=== PATIENT | female | born 1960 | race Caucasian/White ===

== ENCOUNTER 2021-01-21 06:27 | Emergency (ER) | payer OTHER ==
[~2021-01-21 06:27] MED LIST: COZAAR 25MG TAB25 MG PO; MOBIC7.5 MG PO; OTEZLA30 MG PO; PERCOCET 5-3251 EACH PO
[2021-01-21] MEDS ORDERED: NORCO 5-325 TA1 EACH PO (07:03)
== END 2021-01-21 07:30 | disposition home or self-care (01) ==
LOC: FER 06:27
DX: M72.2 Plantar fascial fibromatosis (principal); I10 Essential (primary) hypertension; F17.210 Nicotine dependence, cigarettes, uncomplicated; Z79.899 Other long term (current) drug therapy
CPT/HCPCS: 73630; J1885

== ENCOUNTER 2021-11-05 04:25 | Emergency (ER) | payer OTHER ==
[~2021-11-05 04:25] MED LIST changes: +NORCO 5-325 TA1 EACH PO
[2021-11-05 06:42] LABS: BASOPHIL 0.2 % (0-2); EOSINOPHIL 0.9 % (0-5); HCT 42.1 % (37.0-47.0); LYMPHOCYTE 4.4 % (15-48); MCH 31.3 pg (25.0-31.0); MCHC 33.3 g/dL (32.0-36.0); MONOCYTE 10.2 % (0-12); MPV 12.1 fL (6.0-9.5); NEUTROPHIL 83.9 % (41-80); NRBC 0; PLT 177 K/uL (150-400); RBC 4.48 M/uL (4.20-5.40); WBC 5.7 K/uL (4.0-10.5)
[2021-11-05 06:45] LABS: LACTIC ACID 1.5 mmol/L (0.4-1.9)
[2021-11-05 06:48] LABS: ALBUMIN 3.8 g/dL (3.4-5.0); BILIRUBIN - TOTAL 0.5 mg/dL (0.2-1.0); BUN/CREAT RATIO (CALC) 15.5 RATIO; CREATININE 1.42 mg/dL (0.51-0.95); GLOBULIN (CALCULATION) 3.7 g/dL; TOTAL PROTEIN 7.5 g/dL (6.4-8.2)
[2021-11-05 10:56] LABS: BILIRUBIN NEGATIVE (NEGATIVE); BLOOD NEGATIVE Ery/uL (NEGATIVE); CLARITY CLEAR (CLEAR); COLOR YELLOW (YELLOW); GLUCOSE (U) NORMAL (NORMAL); LEUKOCYTES TRACE Leu/uL (NEGATIVE); NITRITE POSITIVE (NEGATIVE); PROTEIN NEGATIVE (NEGATIVE); UROBILINOGEN 0.2 mg/dL (0.2-1.0)
[2021-11-05 11:23] LABS: BACTERIA 3+
[2021-11-05 11:53] LABS: BUN/CREAT RATIO (CALC) 17.1 RATIO; CREATININE 1.29 mg/dL (0.51-0.95)
[2021-11-05] MEDS ORDERED: CIPRO500 MG PO (12:43)
== END 2021-11-05 13:19 | disposition home or self-care (01) ==
LOC: FER 04:25
PROVIDERS: Emergency Medicine; Emergency Medicine Emergency Medical Services
DX: N13.6 Pyonephrosis (principal); N17.9 Acute kidney failure, unspecified; I10 Essential (primary) hypertension; J44.9 Chronic obstructive pulmonary disease, unspecified; F17.210 Nicotine dependence, cigarettes, uncomplicated; Z79.899 Other long term (current) drug therapy
CPT/HCPCS: 36415; 80048; 80053; 81001; 83605; 83690; 84145; 85025; 87076; 87088; 87186; J2270; J2405; J7030

== ENCOUNTER → 2022-03-01 | Day surgery (SDC) | payer OTHER ==
[~2022-03-01] VITALS: Ht 165.1 cm; Wt 72.6 kg
[~2022-03-01] MED LIST changes: +CALCIUM PO; +CIPRO500 MG PO; +METOPROLOL SUCC25 MG PO; +MULTI-VITAMIN1 EACH PO; +PROAIR HFA8.5 GM INH; +STIOLTO RESPIMAT 2.5 INH
== END | disposition home or self-care (01) ==
LOC: FAS 08:41
DX: K52.832 Lymphocytic colitis (principal); K52.9 Noninfective gastroenteritis and colitis, unspecified; K63.5 Polyp of colon; K57.30 Diverticulosis of large intestine without perforation or abscess without bleeding; I10 Essential (primary) hypertension; J44.9 Chronic obstructive pulmonary disease, unspecified; F17.210 Nicotine dependence, cigarettes, uncomplicated; Z79.899 Other long term (current) drug therapy; Z86.16 Personal history of COVID-19
CPT/HCPCS: J1610; J2704; J7120

== ENCOUNTER → 2022-04-30 | Day surgery (SDC) | payer OTHER ==
[~2022-04-30] VITALS: Ht 162.6 cm; Wt 72.6 kg
[~2022-04-30] MED LIST changes: +BUDESONIDE PO; +CENTRUM ULTRA1 EACH PO; +COZAAR100 MG PO; +OS-CAL500 MG PO
[2022-04-30 08:18] LABS: HCT 37.5 % (37.0-47.0); HGB 12.5 g/dl (12.5-16.0); MCH 30.6 pg (25.0-31.0); MCHC 33.3 g/dL (32.0-36.0); MCV 91.7 fL (78.0-100.0); MPV 11.2 fL (6.0-9.5); RBC 4.09 M/uL (4.20-5.40); WBC 7.3 K/uL (4.0-10.5)
[2022-04-30 09:14] LABS: CREATININE 0.92 mg/dL (0.51-0.95); POTASSIUM 3.8 mmol/L (3.5-5.1)
== END | disposition home or self-care (01) ==
LOC: FAS 07:47
PROVIDERS: Obstetrics & Gynecology
DX: N87.1 Moderate cervical dysplasia (principal); I12.9 Hypertensive chronic kidney disease with stage 1 through stage 4 chronic kidney disease, or unspecified chronic kidney disease; N18.30 Chronic kidney disease, stage 3 unspecified; J44.9 Chronic obstructive pulmonary disease, unspecified; I25.10 Atherosclerotic heart disease of native coronary artery without angina pectoris; M81.0 Age-related osteoporosis without current pathological fracture; F17.210 Nicotine dependence, cigarettes, uncomplicated; Z79.899 Other long term (current) drug therapy
CPT/HCPCS: 36415; 80048; 86850; 86900; 86901; J2250; J2405; J2704; J3010; J7120